=== PATIENT | male | born 1960 | race Caucasian/White ===

== ENCOUNTER 2019-08-22 08:54 | Day surgery (SDC) | payer OTHER ==
[2019-08-15 09:33] LABS: ABSOLUTE EOSINOPHILS # (AUTO) 0.2 10^3/uL (0.0-0.6); ABSOLUTE LYMPHOCYTES (AUTO) 1.2 10^3/uL (0.5-4.7); ABSOLUTE MONOCYTES (AUTO) 0.4 10^3/uL (0.1-1.4); ABSOLUTE NEUT (AUTO) 3.7 10^3/uL (1.7-8.2); BASOPHILS % (AUTO) 0.6 % (0-2); EOSINOPHILS % (AUTO) 2.8 % (0-6); HEMATOCRIT 39.5 % (37.9-51.0); HEMOGLOBIN 13.9 g/dL (13.5-17.0); LYMPHOCYTES % (AUTO) 21.7 % (13-45); MEAN CORPUSCULAR HGB CONC 35.3 g/dL (32.0-36.0); MEAN CORPUSCULAR VOLUME 93 fl (80-97); MONOCYTES % (AUTO) 6.7 % (3-13); PLATELET COUNT 248 10^3/uL (150-450); RED BLOOD COUNT 4.23 10^6/uL (4.35-5.55); RED CELL DISTRIBUTION WIDTH 13.5 % (11.5-14.0); SEGMENTED NEUTROPHILS % (AUTO) 68.2 % (42-78); TOTAL CELLS COUNTED % (AUTO) 100 %; WHITE BLOOD COUNT 5.4 10^3/uL (4.0-10.5)
[2019-08-15 09:46] LABS: ANION GAP 12 (5-19); BLOOD UREA NITROGEN 8 mg/dL (7-20); CALCIUM 9.6 mg/dL (8.4-10.2); CARBON DIOXIDE 26 mmol/L (22-30); CHLORIDE 104 mmol/L (98-107); GLUCOSE 92 mg/dL (75-110); POTASSIUM 4.5 mmol/L (3.6-5.0)
--- NOTE | 2019-08-15 16:18 | EKG REPORT ---
SEVERITY:- NORMAL ECG - SINUS RHYTHM : Confirmed by: Fartun Wilder MD 15-Aug-2019 16:18:12
[~2019-08-22 08:54] MED LIST: CEFAZOLIN SODIUM 2 GM in DEXTROSE 5%-WATER 100 ML IV PRN; LACTATED RINGERS 1000 ML IV PRN
[2019-08-22] MEDS ORDERED: MIDAZOLAM 2 MG/2 ML INJ ONE ×2 (10:21→12:08)
[2019-08-22] MEDS ORDERED: ONDANSETRON HCL INJ/PF 4 MG/2 ML SDV ONE ×2 (10:21→12:08)
[2019-08-22] MEDS ORDERED: BUPIVACAINE HCL 0.5 % INJ/PF 30 ML SDV ONE (12:07)
[2019-08-22] MEDS ORDERED: FENTANYL CITRATE INJ/PF 100 MCG/2 ML AMPUL ONE (12:08)
[2019-08-22] MEDS ORDERED: PROPOFOL INJ 200 MG/20 ML VIAL IV ONE (12:08)
[2019-08-22] MEDS ORDERED: DEXAMETHASONE SOD PHOSPHATE INJ 4 MG/1 ML VIAL ONE (12:08)
[2019-08-22] MEDS ORDERED: BUPIVACAINE HCL 0.5 % INJ/PF 30 ML SDV INJ ONE (13:04)
[2019-08-22] MEDS ORDERED: DIPHENHYDRAMINE HCL 50 MG/ML VIAL IV PRN (13:28)
[2019-08-22] MEDS ORDERED: PROMETHAZINE HCL INJ 25 MG/1 ML VIAL IV PRN ×2 (13:28)
[2019-08-22] MEDS ORDERED: MEPERIDINE HCL/PF INJ 25 MG/1 ML DISP.SYRIN IV PRN (13:28)
[2019-08-22] MEDS ORDERED: ONDANSETRON HCL INJ/PF 4 MG/2 ML SDV IV PRN ×2 (13:28→14:14)
[2019-08-22] MEDS ORDERED: FENTANYL CITRATE INJ/PF 100 MCG/2 ML AMPUL IV PRN ×3 (13:28)
[2019-08-22] MEDS ORDERED: OXYCODONE-ACETAMINOPHEN 5-325 MG TABLET PO PRN (14:14)
[2019-08-22] MEDS ORDERED: MORPHINE SULFATE 10 MG/ML INJ IV PRN (14:14)
--- NOTE | 2019-08-22 14:21 | Operative Report ---
Operative Report DATE OF SURGERY: 08/22/19 PREOPERATIVE DIAGNOSIS: Right wrist scapholunate advanced collapse POSTOPERATIVE DIAGNOSIS: Same OPERATION: Right wrist hardware removal with proximal row carpectomy, PIN neurectomy SURGEON: CARMITA COATES ANESTHESIA: GA COMPLICATIONS: None ESTIMATED BLOOD LOSS: Minimal PROCEDURE: Indication for above procedure: 58-year-old male who sustained a scapholunate injury approximately 15 years ago. In March 2005 he underwent scapholunate reconstruction patient had originally done well but then began developing increasing pain swelling and limited motion. We attempted conservative measures including immobilization and anti-inflammatories without resolution of patient's symptoms. Risk and benefits were explained patient verbalized understanding consented for surgical procedure. Procedure In Detail: Patient was seen and evaluated in the preoperative holding area. The RIGHT upper extremity was initialized and marked. Patient received 2g of Ancef IV for bacterial prophylaxis. Patient was taken back to the operative room where transferred to the operative table and placed under general anesthesia. Once they were adequately anesthetized a nonsterile tourniquet was placed on the upper extremity. A surgical team debriefing was performed ensuring all instrumentation was available, the surgical procedure was discussed with possible concerns reviewed. The upper extremity was prepped with chlorhexidine and alcohol and draped in a sterile fashion. A timeout was done identifying co rrect patient, procedure and extremity everyone in attendance agree with this and verbalized no concerns. The extremity was exsanguinated the tourniquet was inflated to 250 mmHg. Previous skin incision was utilized dorsally. Blunt dissection was performed. A peripheral veins were coagulated with bipolar cautery. Superficial radial nerve was identified and retracted with radial skin flap. Interval between the third dorsal compartment and fourth dorsal compartment was utilized. EPL tendon was released and transposed radially. Along the radial floor of the fourth dorsal compartment the posterior interosseous nerve was identified and posterior interosseous nerve neurectomy was performed. The fourth and second dorsal compartments were elevated to expose the wrist. There was significant scar tissue with involvement of the dorsal capsule. Capsulotomy was then performed to expose the underlying carpus. Prior screw was isolated and removed along with retained K wire from the scaphoid. Scaphoid including the scaphoid tubercle was then excised. Inspection of the proximal capitate demonstrated no evidence of degeneration. There was mild degeneration of the proximal lunate where the screw had backed out dorsally along the articular surface causing bone loss of the lunate. There was mild degeneration of the dorsal lip of the radius but remaining lunate fossa demonstrated no evidence of degeneration. Given the bone loss of the lunate decision was made to proceed with proximal row carpectomy. The radial scaphoid capitate ligament was retained. Short and long radiolunate limits were then exposed and released. Capitate was protected and lunate was removed in its entirety. The triquetrum was then isolated from the pisiform and adjacent hamate. Once adequately isolated to the triquetrum was successfully excised. C-arm fluoroscopy was then obtained confirming reduction of the capitate within the lunate fossa. Patient was placed through range of motion there is no evidence of instability and adequate congruency of the new radial capitate articulation. Wound was copiously irrigated with normal saline. Capsule was reapproximated with interrupted 2-0 Ethibond suture. Tourniquet was deflated and peripheral bleeding was controlled with bipolar cautery into the wound was dry. Retinaculum was closed with interrupted 3-0 Monocryl suture. Subcutaneous tissues were closed with 3-0 Monocryl suture. Skin was closed with running subcuticular 4-0 Monocryl reinforced with Dermabond and Steri-Strips. 30 cc of 0.5% Vivacaine without epinephrine was injected for postoperative pain control. Patient was placed in a sugar tong splint with the wrist at neutral position with neutral pronation/supination. Final C-arm fluoroscopy was then obtained confirming reduction of the capitate within the lunate fossa. Sponge counts, instrument counts, needle counts were correct. Patient was then awoken from anesthesia. Transferred from the operating room table to the operating room stretcher. There was no intraoperative complications patient tolerated procedure well stable to PACU. Postoperative plan: Patient follow in the office in 2 weeks at which point we will transition the short arm cast. Will obtain in cast x-rays.
--- NOTE | 2019-08-22 14:21 | Discharge Summary ---
Discharge Summary (SDC) - Discharge Final Diagnosis: Scapholunate Advanced Collapse Date of Surgery: 08/22/19 Discharge Date: 08/22/19 Condition: Good Treatment or Instructions: Schedule Follow Up w/ Dr. Ramon Vernon @ [facility] for Surgery to be seen in 10-14 days or as scheduled [place]: [place]: [place]: Ice and elevate Keep splint clean/dry/intact, do not remove. If your fingers become numb please unwrap the Lucio wrap but leave the splint in place, if the sensation does not return within 30 minutes please return to the emergency department. May begin finger range of motion attempting to make full fist. Please use ibuprofen (Motrin or Advil) 600-800 mg every 8 hours as needed for pain or fever DO NOT TAKE w/ TORADOL may use once TORADOL complete. You may also use acetaminophen (Tylenol) 1000 mg every 4-6 hours as needed for pain or fever. Please be aware that many medications contain acetaminophen, do not exceed a total of 1000 mg of acetaminophen every 6 hours. If ibuprofen and acetaminophen are not sufficient for your pain you may take the Percocet/Gary. Please be aware that the Percocet/Gary does contain Tylenol. Stool softener of choice when on pain medication. USE OF [id number] IBUPROFEN: Ibuprofen (Advil, Nuprin, Medipren, Motrin IB) is a medication for fever and pain control. In addition, it has anti- inflammatory effects which may be beneficial, especially in the treatment of injuries. It's best to take ibuprofen with food. Persons with ulcer disease or allergy to aspirin should notify their physician of this before taking ibuprofen. Ibuprofen can be given every four to six hours, for a total of four doses daily. Age Pain or fever dose Antiinflammatory dose 6-8 yr 200 mg (1 tab) 200 mg (1 tab) 9-11 yr 200 mg (1 tab) 200-400 mg (1-2 tab) 11-14 yr 200-400 mg (1-2 tab) 400 mg (2 tab) 15-adult 400 mg (2 tab) 600 mg (3 tab) ORAL NARCOTIC MEDICATION: You have been given a prescription for pain control. This medication is a narcotic. It's best taken with food, as nausea can result if taken on an empty stomach. Don't operate machinery or drive within six hours of taking this medication. Do not combine this medicine with alcohol, or with any medication which can cause sedation (such as cold tablets or sleeping pills) unless you get permission from the physician. Narcotics tend to cause constipation. If possible, drink plenty of fluids and eat a diet high in fiber and fruits. Please be aware that prescription narcotics also have the potential for abuse. People become addicted to these medications because of the general sense of wellbeing that they induce. This feeling along with a significant reduction in tension, anxiety, and aggression provides a stimulating seductive quality to these drugs. Once your pain is under control, we encourage you to discard your unused narcotics. Prescriptions: Hydrocodone/Acetaminophen [Gary 7.5-325 mg Tablet] 1 tab PO Q6 PRN #25 tablet PRN Reason: Referrals: PAZ STANFORD MD [Primary Care Provider] - Discharge Diet: As Tolerated Respiratory Treatments at Home: Deep Breathing/Coughing Discharge Activity: No Lifting Over 10 Pounds, No Lifting/Push/Pulling Report the Following to Your Physician Immediately: Fever over 101 Degrees, Unusual Bleeding, Redness, Swelling, Warmth, Increased Soreness
[2019-08-22] MEDS ORDERED: ROPIVACAINE HCL 0.5% INJ/PF (5 MG/1 ML) 30 ML SDV ONE (14:32)
[2019-08-22] MEDS ORDERED: LIDOCAINE 2% INJ (20 MG/ML) 20 ML MDV ONE (14:32)
[2019-08-22] MEDS ORDERED: LIDOCAINE 1%/EPINEPHRINE INJ 20 ML VIAL ONE (14:32)
--- NOTE | 2019-08-22 15:42 | RADIOLOGY REPORT (SQ) ---
EXAM DESCRIPTION: NO CHG FLUORO; WRIST RIGHT 2 VIEWS COMPLETED DATE/TIME: 08/22/2019 3:22 pm REASON FOR STUDY: RT WRIST HARDWARE REMOVAL BONE EXCISION ASST WITH FLUORO IN OR COMPARISON: None. FLUOROSCOPY TIME: 28 seconds 2 Images saved to PACS LIMITATIONS: None. PROCEDURE: Right wrist hardware removal and bone excision. FINDINGS: 2 images from fluoro show hardware has been removed. There appears to be excision of the navicular. IMPRESSION: Hardware removal on bone excision. Refer to operative note for further information. COMMENT: PQRS 6045F: Fluoroscopy time of the procedure is documented in the report. TECHNICAL DOCUMENTATION: JOB ID: [id number] 2010 [employer]- All Rights Reserved Reading location - IP/workstation name: [email or web address]
--- NOTE | 2019-08-22 15:42 | RADIOLOGY REPORT (SQ) ---
EXAM DESCRIPTION: NO CHG FLUORO; WRIST RIGHT 2 VIEWS COMPLETED DATE/TIME: 08/22/2019 3:22 pm REASON FOR STUDY: RT WRIST HARDWARE REMOVAL BONE EXCISION ASST WITH FLUORO IN OR COMPARISON: None. FLUOROSCOPY TIME: 28 seconds 2 Images saved to PACS LIMITATIONS: None. PROCEDURE: Right wrist hardware removal and bone excision. FINDINGS: 2 images from fluoro show hardware has been removed. There appears to be excision of the navicular. IMPRESSION: Hardware removal on bone excision. Refer to operative note for further information. COMMENT: PQRS 6045F: Fluoroscopy time of the procedure is documented in the report. TECHNICAL DOCUMENTATION: JOB ID: [id number] 2010 [email or web address]- All Rights Reserved Reading location - IP/workstation name: [email or web address]
[2019-08-22 17:13] VITALS: BP 147/72
== END 2019-08-22 17:10 | disposition home or self-care (01) ==
LOC: OROUT 08:54
PROVIDERS: ATTEND Orthopaedic Surgery
DX: M19.031 Primary osteoarthritis, right wrist (principal); M25.531 Pain in right wrist; M25.831 Other specified joint disorders, right wrist; Z79.899 Other long term (current) drug therapy; E78.5 Hyperlipidemia, unspecified; I10 Essential (primary) hypertension; Z87.891 Personal history of nicotine dependence
CPT/HCPCS: 93005; 36415; 85025; 80048; 73100; 93010; 01830; 20670; 64772; J2795; J2250; J3490 ×3; J0690; J1100; J3010; J2405; J7060; J2704

== ENCOUNTER 2019-12-31 10:49 | Emergency (ER) | payer OTHER ==
[2019-12-31] MEDS ORDERED: ASPIRIN 81 MG TABLET, CHEWABLE PO ONE (11:28)
--- NOTE | 2019-12-31 11:30 | ER Document Report ---
ED Medical Screen (RME) - General Chief Complaint: Palpitations Stated Complaint: BLOOD PRESSURE PROBLEM Time Seen by Provider: 12/31/19 11:23 Primary Care Provider: PAZ STANFORD MD [Primary Care Provider] - Follow up as needed Mode of Arrival: Ambulatory Information source: Patient Notes: HPI; 59-year-old male presents emergency room complaining of palpitations with e levated blood pressure and chest pain for the past week. No history of hypertension. Saw his primary care physician a week ago for routine follow-up when he was noted to have elevated blood pressure. States he feels like his heart is beating too fast. Also complains of some chest tightness to the left side of his chest. No medications for symptoms. PE: Alert and oriented x3. Mild distress noted. Lungs: Clear to auscultation without rales rhonchi wheezes. Heart: Regular rate rhythm without murmurs, rubs, gallops. I have greeted and performed a rapid initial assessment of this patient. A comprehensive ED assessment and evaluation of the patient, analysis of test results and completion of the medical decision making process will be conducted by additional ED providers. I have specifically instructed the patient or family members with the patient to immediately return to any nursing staff should anything change in the patient's condition or with their chief complaint. TRAVEL OUTSIDE OF THE [place] IN LAST 30 DAYS: No - Related Data Allergies/Adverse Reactions: acetaminophen [From Percocet] Allergy (Intermediate, Verified 12/31/19 11:23) Pruritis oxycodone HCl [From Percocet] Allergy (Intermediate, Verified 12/31/19 11:23) Pruritis Home Medications: anxiety. cholesterol. trazadone Past Medical History - Social History Chew tobacco use (# tins/day): No Frequency of alcohol use: Heavy Drug Abuse: None - Past Medical History Cardiac Medical History: Denies: Hx Coronary Artery Disease, Hx Heart Attack, Hx Hypertension Pulmonary Medical History: Denies: Hx Asthma, Hx Bronchitis, Hx COPD, Hx Pneumonia Neurological Medical History: Denies: Hx Cerebrovascular Accident, Hx Seizures Musculoskeltal Medical History: Denies Hx Arthritis - Immunizations Hx Diphtheria, Pertussis, Tetanus Vaccination: Yes Physical Exam - Vital signs Vitals: Temp Pulse Resp BP Pulse Ox 98.8 F 72 16 176/77 H 95 12/31/19 10:52 12/31/19 10:52 12/31/19 10:52 12/31/19 10:52 12/31/19 10:52 Course - Vital Signs Vital signs: Temp Pulse Resp BP Pulse Ox 98.8 F 72 16 176/77 H 95 12/31/19 11:24 12/31/19 10:52 12/31/19 10:52 12/31/19 10:52 12/31/19 10:52 Doctor's Discharge - Discharge Referrals: PAZ STANFORD MD [Primary Care Provider] - Follow up as needed
[2019-12-31 11:56] LABS: ABSOLUTE EOSINOPHILS # (AUTO) 0.2 10^3/uL (0.0-0.6); ABSOLUTE LYMPHOCYTES (AUTO) 1.1 10^3/uL (0.5-4.7); ABSOLUTE MONOCYTES (AUTO) 0.5 10^3/uL (0.1-1.4); ABSOLUTE NEUT (AUTO) 4.2 10^3/uL (1.7-8.2); BASOPHILS % (AUTO) 0.7 % (0-2); EOSINOPHILS % (AUTO) 2.6 % (0-6); HEMATOCRIT 43.1 % (37.9-51.0); LYMPHOCYTES % (AUTO) 17.7 % (13-45); MEAN CORPUSCULAR HEMOGLOBIN 33.6 pg (27.0-33.4); MEAN CORPUSCULAR HGB CONC 34.9 g/dL (32.0-36.0); MEAN CORPUSCULAR VOLUME 96 fl (80-97); MONOCYTES % (AUTO) 8.2 % (3-13); PLATELET COUNT 224 10^3/uL (150-450); RED BLOOD COUNT 4.48 10^6/uL (4.35-5.55); RED CELL DISTRIBUTION WIDTH 13.2 % (11.5-14.0); SEGMENTED NEUTROPHILS % (AUTO) 70.8 % (42-78); TOTAL CELLS COUNTED % (AUTO) 100 %
[2019-12-31 11:59] LABS: INTERNATIONAL RATION (INR) 1.05; PROTHROMBIN TIME 13.7 SEC (11.4-15.4)
--- NOTE | 2019-12-31 12:01 | EKG REPORT ---
SEVERITY:- NORMAL ECG - SINUS RHYTHM : Confirmed by: Russel Cook MD 31-Dec-2019 12:00:54
[2019-12-31 12:08] LABS: ALBUMIN 4.9 g/dL (3.5-5.0); ALKALINE PHOSPHATASE 51 U/L (38-126); ANION GAP 8 (5-19); ASPARTATE AMINO TRANSFERASE 76 U/L (17-59); BILIRUBIN,TOTAL 0.9 mg/dL (0.2-1.3); BLOOD UREA NITROGEN 10 mg/dL (7-20); CALCIUM 10.4 mg/dL (8.4-10.2); CARBON DIOXIDE 27 mmol/L (22-30); CHLORIDE 105 mmol/L (98-107); CREATINE KINASE 77 U/L (55-170); GLUCOSE 111 mg/dL (75-110); POTASSIUM 4.6 mmol/L (3.6-5.0); TOTAL PROTEIN 8.2 g/dL (6.3-8.2)
--- NOTE | 2019-12-31 12:10 | RADIOLOGY REPORT (SQ) ---
EXAM DESCRIPTION: CHEST 2 VIEWS IMAGES COMPLETED DATE/TIME: 12/31/2019 11:46 am REASON FOR STUDY: chest pain COMPARISON: None. EXAM PARAMETERS: NUMBER OF VIEWS: two views TECHNIQUE: Digital Frontal and Lateral radiographic views of the chest acquired. RADIATION DOSE: NA LIMITATIONS: none FINDINGS: LUNGS AND PLEURA: No opacities, masses or pneumothorax. No pleural effusion. MEDIASTINUM AND HILAR STRUCTURES: No masses or contour abnormalities. HEART AND VASCULAR STRUCTURES: Heart normal size. No evidence for failure. BONES: No acute findings. HARDWARE: None in the chest. OTHER: No other significant finding. IMPRESSION: NO ACUTE RADIOGRAPHIC FINDING IN THE CHEST. TECHNICAL DOCUMENTATION: JOB ID: [id number] 2010 [employer]- All Rights Reserved Reading location - IP/workstation name: [email or web address]
[2019-12-31 12:20] LABS: CREATINE KINASE MB 0.51 ng/mL (<4.55)
[2019-12-31 12:21] LABS: TROPONIN I < 0.012 ng/mL
--- NOTE | 2019-12-31 15:29 | ER Document Report ---
ED General - General Chief Complaint: Palpitations Stated Complaint: BLOOD PRESSURE PROBLEM Time Seen by Provider: 12/31/19 11:23 Primary Care Provider: PAZ STANFORD MD [Primary Care Provider] - Follow up as needed Mode of Arrival: Ambulatory Information source: Patient Notes: 59-year-old man presents to the emergency department with a complaint of blood pressure being elevated and not feeling like his normal self. He complains of some discomfort across his shoulders and back. He denies shortness of breath or palpitations. He has seen his primary physician and told to keep a close monitor on his blood pressure. He notes that the pressures been running in high 150s systolic over the past week and today with the discomfort in his shoulders he decided to come to the emergency department for further evaluation and treatment. TRAVEL OUTSIDE OF THE [place] IN LAST 30 DAYS: No - Related Data Allergies/Adverse Reactions: acetaminophen [From Percocet] Allergy (Intermediate, Verified 12/31/19 11:23) Pruritis oxycodone HCl [From Percocet] Allergy (Intermediate, Verified 12/31/19 11:23) Pruritis Home Medications: anxiety. cholesterol. trazadone Past Medical History - General Information source: Patient - Social History Smoking Status: Former Smoker Chew tobacco use (# tins/day): No Frequency of alcohol use: Heavy Drug Abuse: None Family History: Reviewed & Not Pertinent Patient has homicidal ideation: No - Past Medical History Cardiac Medical History: Denies: Hx Coronary Artery Disease, Hx Heart Attack, Hx Hypertension Pulmonary Medical History: Denies: Hx Asthma, Hx Bronchitis, Hx COPD, Hx Pneumonia Neurological Medical History: Denies: Hx Cerebrovascular Accident, Hx Seizures Musculoskeletal Medical History: Denies Hx Arthritis Past Surgical History: Reports: Hx Orthopedic Surgery - R wrist - Immunizations Hx Diphtheria, Pertussis, Tetanus Vaccination: Yes Review of Systems - Review of Systems Notes: Constitutional: Negative for fever. HENT: Negative for sore throat. Eyes: Negative for visual changes. Cardiovascular: Negative for chest pain. Respiratory: Negative for shortness of breath. Gastrointestinal: Negative for abdominal pain, vomiting or diarrhea. Genitourinary: Negative for dysuria. Musculoskeletal: + Upper back pain. Skin: Negative for rash. Neurological: Negative for headaches, weakness or numbness. 10 point ROS negative except as marked above and in HPI. Physical Exam - Vital signs Vitals: Temp Pulse Resp BP Pulse Ox 98.8 F 72 16 176/77 H 95 12/31/19 10:52 12/31/19 10:52 12/31/19 10:52 12/31/19 10:52 12/31/19 10:52 - Notes Notes: PHYSICAL EXAMINATION: Physical Exam: General: Well-nourished well-developed 59-year-old man in no acute distress HEENT: NC/AT, pupils equal round and reactive to light, MM moist,nares clear, oropharynx clear, airway patent Neck: supple, no adenopathy, no masses. Good range of motion Lungs: clear, no wheezing, no rales no rhonchi CVS: Regular rate and rhythm no murmur gallop or rub Abdomen: Soft, active, nontender, no masses, no hepatosplenomegaly Ext: No edema, clubbing or cyanosis. Neuro: Alert and responsive, moving all 4 extremities on command, cranial nerves intact, no focal findings Skin: Intact no open lesions, no rash PSYCH: Normal mood, normal affect. Course - Re-evaluation Re-evalutation: 12/31/19 15:26 The patient was evaluated in the emergency department with EKG times all of whic h were negative. He has not complaints of the specific chest pain however, during this stay his blood pressure was consistently above 150. After some discussion with the patient the decision made to start him on a low-dose of antihypertensive medication. The patient is able to monitor his blood pressure at home and will follow-up with his primary care doctor this week. He has been sent home on lisinopril 5 mg daily. - Vital Signs Vital signs: Temp Pulse Resp BP Pulse Ox 98.8 F 72 17 156/73 H 98 12/31/19 15:47 12/31/19 10:52 12/31/19 15:41 12/31/19 15:42 12/31/19 15:42 - Laboratory Result Diagrams: 12/31/19 11:33 12/31/19 11:33 Laboratory results interpreted by me: 12/31/19 12/31/19 11:33 11:33 MCH 33.6 H Glucose 111 H Calcium 10.4 H AST 76 H ALT 68 H - Diagnostic Test Radiology reviewed: Image reviewed, Reports reviewed Radiology results interpreted by me: 12/31/19 15:28 Chest x-ray: No acute cardiopulmonary findings. - EKG Interpretation by Me EKG shows normal: Sinus rhythm - Normal sinus rhythm with a rate of 67, no ST or T wave abnormalities, normal axis. Discharge - Discharge Clinical Impression: Essential hypertension, Musculoskeletal back pain Condition: Good Disposition: HOME, SELF-CARE Instructions: High Blood Pressure, Requiring Treatment ([facility]) Additional Instructions: You were seen in the emergency department today and diagnosed with essential hypertension, lisinopril 5 mg daily is prescribed. You may take the medication and continue to monitor your pressure at home. Follow-up with your primary care doctor and the decision to continue or adjust the medications can be made. If you have further difficulties or other concerns you may return to the emergency department as needed. HOME CARE INSTRUCTIONS & INFORMATION: Thank you for choosing us for your medical needs. We hope you're satisfied with the care you received. After you leave, you must properly care for your problem and, at the same time, observe i ts progress. Any condition can change. Some illnesses can change rapidly over hours or days. If your condition worsens, return to the Emergency Department or see your physician promptly. ABOUT YOUR X-RAYS AND EKG'S: If you had an EKG or X-rays taken, they have been read by the Emergency Physician. The X-rays and EKG's will also be read by a Radiologist or Woods Superintendent within 24 hours. If discrepancies are noted, you will be notified by telephone. Please be certain the ED has a correct telephone number & address where you can be reached. Also, realize that some fractures or abnormalities do not show up on initial X-rays. If your symptoms continue, see your physician. ABOUT YOUR LABORATORY TEST: If you had laboratory tests, the results have been reviewed by the Emergency Physician. Some test results (for example cultures) may not be available for several days. You will be contacted if any test result shows you need additional treatment. Please be certain the ED has a correct telephone number and address where you can be reached. ABOUT YOUR MEDICATIONS: You will receive instructions on how to take your medicine on the prescription label you receive. Additional information may be provided by the Pharmacy. If you have questions afterwards, call the ED for clarification or further instructions. Some prescribed medications may cause drowsiness. Do not perform tasks such as driving a car or operating machinery without consulting your Pharmacist. If you feel you need a refill of pain medication, your condition will need re-evaluation. Please do not call for a refill of any medication. ABOUT YOUR SIGNATURE: Signature of this document acknowledges to followin. Understanding that you received emergency treatment and that you may be released before al medical problems are known or treated. Please be certain the ED has a correct phone number & address where you can be reached. 2. Acknowledgement that you will arrange for follow-up care as recommended. 3. Authorization for the Emergency Physician to provide information to your follow-up Physician in order to maximize your care. AT ANY TIME, IF YOUR SYMPTOMS CHANGE SIGNIFICANTLY OR WORSEN OR YOU DEVELOP NEW SYMPTOMS, RETURN TO THE EMERGENCY DEPARTMENT IMMEDIATELY FOR RE-EVALUATION. OUR GOAL IS TO PROVIDE EXCELLENT MEDICAL CARE! WE HOPE THAT WE HAVE MET YOUR EXPECTATIONS DURING YOUR EMERGENCY DEPARTMENT VISIT AND THAT YOU FEEL YOU HAVE RECEIVED EXCELLENT CARE! Prescriptions: Lisinopril [Zestril] 5 mg PO DAILY #15 tablet Referrals: PAZ STANFORD MD [Primary Care Provider] - Follow up as needed
[2019-12-31 15:47] VITALS: BP 156/73
== END 2019-12-31 15:48 | disposition home or self-care (01) ==
LOC: ER 10:49
DX: I10 Essential (primary) hypertension (principal); M54.9 Dorsalgia, unspecified; Z79.899 Other long term (current) drug therapy; Z87.891 Personal history of nicotine dependence; Z88.8 Allergy status to other drugs, medicaments and biological substances; Z88.6 Allergy status to analgesic agent; Z88.5 Allergy status to narcotic agent
CPT/HCPCS: 36415; 71046; 80053; 82550; 82553; 84484; 85025; 85610; 93005; 93010; 99285